=== PATIENT | male | born 1940 | race Two or more races ===

== ENCOUNTER 2024-02-12 10:11 | Outpatient (REF) | payer BC, SELFPAY ==
--- NOTE | ~2024-02-12 | XR_ITS ---
EXAMINATION: XR LUMBOSACRAL SPINE WITH OBLIQUES CLINICAL INFORMATION: Spinal stenosis in lumbosacral region. COMPARISON: MRI lumbar spine 01/14/2023. TECHNIQUE: AP, lateral neutral, flexion and extension views of the lumbar spine. FINDINGS: Median sternotomy wire overlying the imaged lower thoracic spine. Bones are diffusely demineralized. Atherosclerotic aortoiliac calcifications. Advanced facet arthritis in the [id number] lumbar spine. Mild rotatory scoliosis. Moderate multilevel lumbar spondylosis with loss of disc space height notable at L2-L3, L3-L4 and L4-L5. Alignment preserved on flexion and extension views. Minimal retrolisthesis of L5 on S1 with extension. XR/XR lumbar spine 4V min IMPRESSION: Moderate multilevel lumbar spondylosis.
== END 2024-02-12 10:12 | disposition home or self-care (01) ==
LOC: HO.HOSX 10:11
PROVIDERS: PCP Internal Medicine; Visit Provider Neurological Surgery
DX: M48.07 Spinal stenosis, lumbosacral region (principal)
CPT/HCPCS: 72110

== ENCOUNTER 2024-02-12 10:11 | Outpatient (AMB) | payer MEDICARE, SELFPAY ==
--- NOTE | 2024-02-12 10:33 | A.SPINEOV_ITS ---
Intake Visit Reasons: severe low back pain Intake Note: Mr. Felix is here today c/o severe low back pain. 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 He self-referred. HPI: This 83-year-old male developed severe back pain after open heart surgery. The pain comes with walking and standing and disappears when he sits down. He can also not lay down and has to sleep in a recliner. Denies radiation down his legs. He denies numbness or weakness. The following conservative treatment options were tried without success opioid, physical therapy multiple cortisone shots PMH: Very extensive and includes double bypass, aortic and mitral valve repair, hypertension, hypercholesterolemia, COPD, sleep apnea and kidney disease. Medications: Albuterol, aspirin, amlodipine, metoprolol, Lipitor, oxycodone, Prilosec, stool softeners, Tylenol Allergies: NKDA Social history: . Retired Physical Exam: Patient ambulates with a cane in a flexed position. Straight leg raise is negative. No obvious motor or sensory deficits. No pathological reflexes. Radiological Studies: MRI done at [facility] shows moderate to severe L3-4 and L4-5 central spinal stenosis . Dynamic lumbar x-rays show no signs of instability. No deformity Impression/Plan: This patient is suffering from back pain without neurogenic claudication symptoms. I explained to the patient that the absence of neurogenic claudication symptoms down his legs makes him a poor surgical candidate despite the back pain occurring after walking and standing. When the clinical presentations and medical history is combined he is a poor surgical candidate. Unfortunately, I am not able to help this patient. Thank you for allowing me to participate in your patients care. total time spent was 50 minutes in counseling ,coordination of plan, personal review of imaging, surgical decision making and subsequent plan Jarrett Gifford MD, PhD Spine Fellowship Trained Neurosurgeon Director, [facility] Orders: Orders XR lumbar spine 4V min Today M48.07 - Spinal stenosis, lumbosacral region Coding Level of Care Code New Pt Level 4 (72435) Diagnoses Lumbosacral stenosis without neurogenic claudication M48.07
== END 2024-02-12 11:56 | disposition home or self-care (01) ==
PROVIDERS: PCP Internal Medicine; Visit Provider Neurological Surgery
DX: M48.07 Spinal stenosis, lumbosacral region (principal)
CPT/HCPCS: 99204